=== PATIENT | female | born 1950 | race Caucasian/White ===

== ENCOUNTER 2025-02-20 15:39 | Emergency (ER) | payer MEDICARE, SELFPAY ==
--- NOTE | 2025-02-20 15:51 | ED_ITS ---
HPI - Back Pain/Injury General Chief Complaint: Urogenital-Female Stated Complaint: Low Back Pain Time Seen by Provider: 02/20/25 15:40 Source: patient Mode of arrival: ambulatory Limitations: no limitations History of Present Illness HPI Narrative: Patient is a 74-year-old female who presents with low back pain, burning with urination and vaginal itching. Reports Back pain started 3 days ago let the other symptoms started 5 days ago. Denies any fever, chills, nausea vomiting, diarrhea. Patient is a very poor historian and states she has multiple allergies but isn't able to give names. Patient states there was only 1 antibiotic she can take but also does not remember the name. Patient also states she has something wrong with her kidneys and poor kidney function but is unable to elaborate. Related Data Home Medications ?Medication ?Instructions ?Recorded ?Confirmed ?Last Taken ?Type alprazolam 0.5 mg tablet mg 02/20/25 Unknown History cinacalcet 30 mg tablet mg PO 02/20/25 Unknown History febuxostat 40 mg tablet mg 02/20/25 Unknown History levothyroxine 88 mcg tablet mcg 02/20/25 Unknown History (Synthroid) pregabalin 50 mg capsule mg 02/20/25 Unknown History Allergies Allergy/AdvReac Type Severity Reaction Status Date / Time latex Allergy Other Verified 02/20/25 16:36 Sulfa (Sulfonamide Allergy Other Verified 02/20/25 16:36 Antibiotics) Review of Systems Review of Systems: All systems reviewed & are unremarkable except as noted in HPI and below Constitutional: Constitutional: Denies chills, Denies fever(s), Denies headache(s), Denies malaise and Denies weakness Eyes: Eyes: Denies change in vision, Denies eye discharge and Denies irritation ENT: Denies otalgia, Denies headache(s), Denies nasal congestion, Denies nasal discharge, Denies sinus pain and Denies sore throat Cardiovascular: Cardiovascular: Denies chest pain, Denies edema, Denies palpitations and Denies dyspnea Respiratory: Respiratory: Denies cough and Denies dyspnea Gastrointestinal: Gastrointestinal: Denies abdominal pain, Denies diarrhea, Denies nausea and Denies vomiting Genitourinary: Genitourinary: Denies hematuria, Denies nocturia, Reports dysuria, Denies flank pain and Denies urinary urgency Musculoskeletal: Musculoskeletal: Reports back pain and Denies numbness Integumentary/Breasts: Skin/Breast: Denies pruritus and Denies rash Neurologic: Denies headache(s), Denies numbness and Denies weakness Psychiatric: Psychiatric: Reports no additional psychiatric complaints Endocrine: Endocrine: Denies palpitations PMFSH Comments At time of signature, agree with nursing past medical, surgical, social and family history. There is no relevant family history pertinent to the presenting complaint. Exam Const: General: cooperative, healthy appearing, comfortable, no acute distress and well nourished Nutritional Appearance: well nourished Orientation/consciousness: patient oriented x3 HENMT: Head: normocephalic and atraumatic Ears: external ears normal Face/Nose/Sinus: Normal external nose present, Normal nares present and normal facial exam Face and sinus: normal facial exam Eyes: General: appearance normal, both eyes and all related structures Pupils: Equal, round and reactive pupils present EOM: EOMs intact bilaterally Neck: Neck: normal visual inspection, full ROM and supple Chest: Chest palpation & inspection: normal inspection of the chest Resp: Effort & Inspection: normal respiratory effort and able to speak in complete sentences Cardio: Rate: regular rate Rhythm: regular rhythm GI: Inspection: normal to inspection GI Palp: No abdominal tenderness and Yes Soft to palpation : General: Yes no CVA tenderness Back/Spine/Pelvis: Back: no CVA tenderness Skin: General skin exam: normal color and no rashes or lesions noted Neuro: General: patient oriented x3 and moves all extremities Cranial nerves: Yes Equal, round and reactive pupils present Extrem: General: normal to inspection and full ROM Psych: Appearance: grossly normal and well kempt Course Course Emergency Course: Patient is aware of diagnosis, understands and agrees to treatment plan. Anticipatory guidance given. Patient agrees to follow-up as directed and is aware of reasons to seek care at the emergency department. Portions of this record may have been created with voice recognition software Level of Care: Express Care Visit Vital Signs Vital signs: Vital Signs Temperature 36.4 C L 02/20/25 16:04 Pulse Rate 70 02/20/25 16:04 Respiratory Rate 18 02/20/25 16:04 Blood Pressure 137/110 H 02/20/25 16:04 Pulse Oximetry 97 02/20/25 16:04 Oxygen Delivery Room Air 02/20/25 16:04 Temperature 36.4 C L 02/20/25 16:04 Pulse Rate 70 02/20/25 16:04 Respiratory Rate 18 02/20/25 16:04 Blood Pressure 137/110 H 02/20/25 16:04 Pulse Oximetry 97 02/20/25 16:04 Oxygen Delivery Room Air 02/20/25 16:04 Reviewed MDM - Back Pain/Injury MDM Narrative Medical decision making narrative: Nurse called patient's pharmacy and softer line it to verify medications and allergies since patient was unable to provide information. Patient states she just had blood drawn 5 weeks ago and her kidney function was better. Reports she did just right of the car for extreme amount of time and does have arthritis in her back. Reports she has taken 2 doses of Tylenol for back pain. Reports she thinks she has a yeast infection since she has had them in the past and the itching feels the same. Will treat with Diflucan. Explained to patient she can not take Diflucan the same time as her alprazolam. Patient states she does not take her alprazolam daily and will not take them at the same time. Pt well hydrated appearing, in no respiratory distress, hemodynamically stable. Recommend supportive care. The patient is stable at time of discharge the clinical impression was discussed and the patient was given the opportunity to ask questions, which were addressed as completely as possible given the information available at present. Anticipatory guidance and return to care precautions were discussed and the importance of primary care follow-up was stressed and encouraged. The patient voiced understanding of the plan, indications to return, and the need for follow-up. Exam findings show no acute concerns or changes Patient is appropriate for outpatient treatment and follow-up. Differential Diagnosis Differential diagnosis: Likely lumbar radiculopathy, strain of lumbar region, renal colic, pyelonephritis and other (UTI, yeast infection) Lab Data Attestation: I reviewed the patient's lab results. Labs: Lab Results 02/20/25 Range/Units 16:12 POC Urine Color Dark POC Urine Clarity Clear POC Urine pH 6.0 POC Ur Specif Waldron 1.015 POC Urine Protein Negative (Negative) POC Ur Glucose (UA) Negative (Negative) POC Urine Ketones Negative (Negative) POC Urine Blood Negative (Negative) POC Urine Nitrite Negative (Negative) POC Urine Bilirubin Negative (Negative) POC Urine Urobilinogen 0.2 POC U Leukocyte Esteras Negative (Negative) Discharge Plan Discharge Clinical Impression: Vaginal yeast infection Lumbar strain Qualifiers: Encounter type: initial encounter Qualified Code(s): S39.012A - Strain of muscle, fascia and tendon of lower back, initial encounter Patient Disposition: Home Condition: Stable Instructions: Yeast Infection (ED), Low Back Strain (ED) Additional Instructions: Take steroids per package instructions. For pain, you may take: Tylenol 650- 1000mg by mouth every 4-6 hours. Do not exceed 4000mg in 24 hours. Exercise:Combine aerobic exercise, like walking or swimming, with specific exercises to keep the muscles in your back and abdomen strong and flexible.bed rest is not recommended. Proper Lifting:Be sure to lift heavy items with your legs, not your back. Do not bend over to pick something up. Keep your back straight and bend at your knees. Weight:Maintain a healthy weight. Being overweight puts added stress on your lower back. Avoid Smoking:Both the smoke and the nicotine cause your spine to age faster than normal. Proper Posture:Good posture is important for avoiding future problems. A therapist can teach you how to safely stand, sit, and lift. Use warm moist heat or ice to help with pain. Follow up with Primary provider in 2-3 days, This may become a chronic condition and they will be the one to help manage your pain and order additional testing. Follow-up with your doctor for further care and evaluation or seek ER if you develop problems with bladder/bowel function, weakness or loss of feeling in one or both of your legs. Take 1 pill today and in 3 days take additional pill. Do not use any scented soaps, tampons or pads. Make sure to always urinate after sex. Use non scented, non flavored condoms. Do not sit and bath with scented soaps or oils. Where cotton underwear and change underwear after exercise. Patient Language: Dominican Prescriptions: New fluconazole 150 mg tablet 150 mg PO ONCE Qty: 2 0RF Rx Instructions: as a single dose after antibiotics are complete. If symptoms persist, take second dose 3 days later. methylprednisolone [Medrol (Byron)] 4 mg tablets,dose pack See Rx Instructions .ROUTE .COMPLEX Qty: 21 0RF Rx Instructions: orally per package directions No Action levothyroxine [Synthroid] 88 mcg tablet alprazolam 0.5 mg tablet cinacalcet 30 mg tablet PO pregabalin 50 mg capsule febuxostat 40 mg tablet Follow-up/Referrals: PHYSICIAN,TILT TRAY DRIVER [Primary Care Provider] - Time of Disposition: 16:54
[2025-02-20 16:04] VITALS: BP 137/110; PULSE 70; RESP 18; TEMP 36.4; O2SAT 97
[2025-02-20 16:14] LABS: EDUAAPPEAR Clear; EDUABILI Negative (Negative); EDUABLOOD Negative (Negative); EDUACOLOR1 Dark; EDUAGLUCOSE Negative (Negative); EDUAKETONE Negative (Negative); EDUALEUKO Negative (Negative); EDUANITRATE Negative (Negative); EDUAPROTEIN Negative (Negative); EDUASPGRAVITY 1.015; EDUAUROBILI 0.2
--- OUTSIDE RECORDS SUMMARY | 2025-02-20 16:27 | XMS_ITS | Patient Health Record ---
Author Organization [facility] Address [address] [place] [id number] Care Team Providers Care Rn Lactation Name Role Phone Dr. Naresh Stapleton Primary Care Provider Un available Nesha Padilla Unavailable [phone] Allergies Allergen (clinical drug ingredient) Drug/Non Drug Allergy documented on EMR Reaction Allergy Type Onset Date Status ADHESIVE TAPE (uncoded) hives Allergy Active Substance with sulfonamide structure and antibacterial mechanism of action (substance) SULFA (uncoded) Unknown Allergy Active Latex Latex Unknown Allergy Active Results Component Value Reference Range Notes CALCIUM IONIZED Reviewed date:01/02/2025 08:25:50 AM Interpretation: Performing Lab: Notes/Report: 4SST CALCIUM,IONIZED(ISE) 1.26 1.09-1.30 mmol/L VITAMIN D-25 HYDROXY Reviewed date:01/02/2025 08:25:37 AM Interpretation: Performing Lab: Notes/Report: 4SST VITAMIND-25HYDROXY 17.6 30.0-100.0 ng/mL DEFICIENCY <10 ng/mL INSUFFICIENCY 10-30 ng/mL SUFFICIENCY 30-100 ng/mL TOXICITY >100 ng/mL Method: Quantitative chemiluminescent immunoassay. Source: Serum. PTH INTACT Reviewed date:01/02/2025 08:25:43 AM Interpretation: Performing Lab: Notes/Report: 4SST PTHINTACT,serum 109 12-88 pg/mL NOTE: REFERENCE RANGE STUDY WAS PERFORMED ON AGES 19-67 YEARS OLD. OTHER AGES INTERPRET WITH CAUTION. TSH + FREE T4 Reviewed date:02/02/2025 10:50:34 PM Interpretation: Performing Lab: Notes/Report: 2SST TSH 3RD GENERATION 0.71 0.34-4.41 uIU/mL FREE T4 1.03 0.54-1.24 ng/dL COMPREHENSIVE METABOLIC Reviewed date:02/02/2025 10:52:16 PM Interpretation: Performing Lab: Notes/Report: 2SST SODIUM 140 136-145 mmol/L POTASSIUM 5.2 3.5-5.1 mmol/L CHLORIDE 104 98-107 mmol/L CARBON DIOXIDE 31 19-32 mEq/L GLUCOSE 88 65-99 mg/dL Non-fasting ref erence interval: 65-139 mg/dL BUN 13 7-25 mg/dL CREATININE 1.0 0.5-1.2 mg/dL BUN/CREATININE RATIO 13 8-28 Ratio BILIRUBIN,Total 0.5 0.2-1.2 mg/dL CALCIUM 9.6 8.6-10.5 mg/dL PROTEIN TOTAL 6.4 6.0-8.3 g/dL ALBUMIN 4.4 3.5-5.7 g/dL ALK.PHOSPHATASE 40 20-130 U/L ALT (SGPT) 21 7-52 U/L AST (SGOT) 20 11-39 U/L GLOBULIN 2.0 1.8-4.0 g/dL A/G RATIO 2.2 0.8-2.7 Ratio eGFR 59 >=60 mL/min GFR is estimated using the CKD-EPI Creatinine equation 2020. GFR units are in mL/min/1.73 square meters. COMPREHENSIVE METABOLIC PANE L Reviewed date:12/05/2024 11:45:49 AM Interpretation: Performing Lab: Notes/Report: BASIC METABOLIC PROFILE Reviewed date:01/02/2025 08:25:25 AM Interpretation: Performing Lab: Notes/Report: 4SST GLUCOSE 85 65-99 mg/dL Non-fasting ref erence interval: 65-139 mg/dL BUN 17 7-25 mg/dL CREATININE 1.1 0.5-1.2 mg/dL BUN/CREATININERATIO 15 8-28 Ratio SODIUM 141 136-145 mmol/L POTASSIUM 4.8 3.5-5.1 mmol/L CHLORIDE 105 98-107 mmol/L CARBONDIOXIDE 27 19-32 mEq/L CALCIUM 9.8 8.6-10.5 mg/dL eGFR 52 >=60 mL/min GFR is estimated using the CKD-EPI Creatinine equation 2020. GFR units are in mL/min/1.73 square meters. Note: - Reason For Referral No Information Medications Medication SIG (Take, Route, Frequency, Duration) Notes Start Date End Date Status ALPRAZolam 0.5 MG 1 tab(s) orally 3 ti mes a day Active Febuxostat 40 MG 1 tablet Orally Once a day for 30 day(s) 11/18/2023 Active Pregabalin 50 MG Oral for 30 Days Active Cinacalcet HCl 30 MG 1 tablet after dinn er meal Orally Once a day for 90 days 10/10/2024 Active Synthroid 88 MCG 1 tab(s) orally once a day for 90 days Active predniSONE 10 MG 1 tab(s) orally once a day Not-Taking Social History Tobacco Use: Social History Observation Description Date Details (start date - stop date) Never Smoker NA - NA SMOKING HISTORY: Question Answer Notes Do you smoke or use other tobacco products Never Additional Findings: Tobacco Non-User Current no n-smoker Alcohol Question Answer Notes Did you have drink containing alcohol in past ye ar No Points 0 Interpretation Negative PRAPARE Question Answer Notes Date Completed/Updated: 01/10/2025 What is your current housing situation? I have h ousing Are you worried about losing your housing? No What is the highest level of school that you have finished? More than high school What is your current work situation? Oth erwise unemployed but not seeking work (ex. student, retired, disabled, unpaid primary patient care representative) In the past year, have you o r any family members you live with been unable to get any of the following when it was really needed? Check all that apply I do not have problems meeting my needs Has lack of transportation k ept you from medical appointments, meetings, work or from getting things needed for daily living? No How often do you see or talk to people that you care about and feel close to? (For example: talking to friends on the phone, visiting friends or family, going to protestant or club meetings) More than 5 times a week How stressed are you? Stress is when someone feels tense, nervous, anxious, or cant sleep at night because their mind is troubled Not at all PRAPARE Score: 2 Problems Problem Type SNOMED Code ICD Code Onset Dates Problem Status W/U Status Risk Notes Problem Body mass index (BMI) 36.0-36.9, adult (Z68.36) 2024 Active confirmed Problem Obese (523734559) Obese (E66.9) 2024 Active confirmed Problem 46324243 Primary hyperparathyroidism (E21.0) Active confirmed L Problem Body mass index 35.00 to 39.99 (85920928879137 5) Body mass index (BMI) 37.0-37.9, adult (Z68.37) Active confirmed Problem Body mass index 35.00 to 39.99 (15255709841419 5) Body mass index (BMI) 38.0-38.9, adult (Z68.38) Active confirmed Problem Chronic kidney disease (370096862) Chronic kidney disease (N18.9) Active confirmed Problem 2198782 Goiter (E04.9) Active confirmed no obstructive symptoms Problem 35871369 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) Active confirmed labs fro m 08/14/2021 TSH 0.45 mIU/mL (0.35 - 3.74), Free T4 1.43 ng/dL (0.76-1.46), and Free T3 2.51 pg/mL (2.19-3.98) Problem 32233671 Vitamin D defici ency (E55.9) Active confirmed Problem 798967951 Primary osteoarthritis involving multiple joints (M15.9) Active confirmed Problem 79291264075227 Arthritis, multi ple joint involvement (M12.9) Active confirmed Vital Signs Heart Rate 68 /min 01/10/2025 Respiratory Rate 18 /min 01/10/2025 Blood pressure diastolic 78 mm Hg 01/10/2025 Oximetry 96 % 01/10/2025 Weight-kg 102.51 kg 01/10/2025 Height 64 in 01/10/2025 Blood pressure systolic 128 mm Hg 01/10/2025 Weight 226 lbs 01/10/2025 BMI 38.79 kg/m2 01/10/2025 Encounters Encounter Location Date Provider Diagnosis [facility] [address] [address] 10/10/2024 Nesha Padilla Primary hyperparathyroidism E21.0 ; Kee's thyroiditis E06.3 ; Vitamin D deficiency E55.9 ; Primary osteoarthritis involving multiple joints M15.9 ; Impaired mobility Z74.09 ; Dietary counseling Z71.3 ; Exercise counseling Z71.89 ; Obese E66.9 and Body mass index (BMI) 36.0-36.9, adult Z68.36 NIP EQUIPMENT OPERATOR/LABORER/SUPERVISOR MAP [address] [address] 12/29/2024 Nesha El-Choufi NIP EQUIPMENT OPERATOR/LABORER/SUPERVISOR MAP [address] [address] 01/10/2025 Nesha El-Choufi Primary hyperparathyroidism E21.0 ; Kee's thyroiditis E06.3 ; Vitamin D deficiency E55.9 ; Primary osteoarthritis involving multiple joints M15.9 ; Impaired mobility Z74.09 ; Dietary counseling Z71.3 ; Exercise counseling Z71.89 ; Obese E66.9 and Body mass index (BMI) 38.0-38.9, adult Z68.38 NIP EQUIPMENT OPERATOR/LABORER/SUPERVISOR MAP [address] [address] 01/30/2025 Nesha El-Choufi NIP EQUIPMENT OPERATOR/LABORER/SUPERVISOR MAP [address] [address] 06/23/2024 Nesha El-Choufi Kee's thyroidi tis E06.3 NIP EQUIPMENT OPERATOR/LABORER/SUPERVISOR MAP [address] [address] 11/24/2024 Nesha El-Choufi NIP EQUIPMENT OPERATOR/LABORER/SUPERVISOR MAP [address] [address] 12/28/2024 Nesha El-Choufi Primary hyperparathyroidism E21.0 ; Vitamin D deficiency E55.9 and Chronic kidney disease N18.9 NIP EQUIPMENT OPERATOR/LABORER/SUPERVISOR MAP [address] [address] 02/02/2025 Nesha El-Choufi Assessments Encounter Date Diagnosis (ICD Code) Assessment Notes Treatment Notes Treatment Clinical Notes Section Notes 06/23/2024 Kee's thyroiditis (ICD-10 - E06.3) 10/10/2024 Primary hyperparathyroidism (ICD-10 - E21.0) Stay well hydrated Start Cinacalcet 30 mg nightly . We discussed that she can start with 1/2 pill nightly after dinner for 2 weeks, then progress to 1 pill nightly We explained Cinacalcet in detail, including adverse effects. Patient was comfortable with plans. Labs:CMP in 2months 10/10/2024 Kee's thyroiditis (ICD-10 - E06.3) Continue Synthroid 88 mcg daily Labs: Free T4, TSH before next OV. 12/28/2024 Primary hyperparathyroidism (ICD-10 - E21.0) 01/10/2025 Primary hyperparathyroidism (ICD-10 - E21.0) Stay well hydrated Continue Cinacalcet 30 mg 1/2 pill nightly. Start Vitamin D3 2000 IU daily. Also start a multivitamin (Centrum Silver or One-A-Day for Women) Recheck CMP in 1 month. If Calcium level excessively rises with addition of Vit D, then will need to increase Cinacalcet back to 30 mg daily. 01/10/2025 Kee's thyroiditis (ICD-10 - E06.3) Continue Synthroid 88 mcg daily Labs: Free T4, TSH with next labs. 01/10/2025 Vitamin D deficiency (ICD-10 - E55.9) Restart Vitamin D supplement. Start at 2000 IU daily (will likely need to increase to 5000 Iu) 12/28/2024 Vitamin D deficiency (ICD-10 - E55.9) 10/10/2024 Vitamin D deficiency (ICD-10 - E55.9) Restart Vitamin D supplements after controlling the mild hypercalcemia with Cinacalcet. 12/28/2024 Chronic kidney disea se (ICD-10 - N18.9) 10/10/2024 Primary osteoarthrit is involving multiple joints (ICD-10 - M15.9) 01/10/2025 Primary osteoarthrit is involving multiple joints (ICD-10 - M15.9) 01/10/2025 Impaired mobility (ICD-10 - Z74.09) 10/10/2024 Impaired mobility (ICD-10 - Z74.09) 10/10/2024 Dietary counseling (ICD-10 - Z71.3) 01/10/2025 Dietary counseling (ICD-10 - Z71.3) 01/10/2025 Exercise counseling (ICD-10 - Z71.89) 10/10/2024 Exercise counseling (ICD-10 - Z71.89) 10/10/2024 Obese (ICD-10 - E66.9) 01/10/2025 Obese (ICD-10 - E66.9) 01/10/2025 Body mass index (BMI ) 38.0-38.9, adult (ICD-10 - Z68.38) 10/10/2024 Body mass index (BMI ) 36.0-36.9, adult (ICD-10 - Z68.36) Plan Of Treatment Future Test Test Name Order Date TSH+Free T4 02/07/2025 Comp. Metabolic Panel (14) 02/07/2025 Next Appt Details Provider Name:Neshakira Sethi i, 07/19/2025 01:30:00 PM, [address] [facility], [address], [place], [address], Insurance Providers Payer Name Payer Address Payer Phone Subscriber Number Group Number Insured Name Patient Relationship to Insured Coverage Start Date Coverage End Date [employer] [address] [address] [place] [phone] [id number] Madison Aparicio Self - patient is the insured 2 Medicare [employer] [address] [place] [address] [id number] Madison Aparicio Self - patient is the insured 2 Medical (General) History Medical History History ICD Code Kee Thyroiditis ROSSY Mixed Hyperlipidemia Hyperparathyroidism Bilateral Carpal Tunnel Syndrome Hyponatremia Hypertension CKD Metabolic Acidosis Surgical History Surgery Date(Month/Year) 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
[2025-02-20 17:04] VITALS: BP 155/78
== END 2025-02-20 17:04 | disposition home or self-care (01) ==
PROVIDERS: Emergency Provider Nurse Practitioner Family
DX: B37.31 Acute candidiasis of vulva and vagina (principal); S39.012A Strain of muscle, fascia and tendon of lower back, initial encounter; X58.XXXA Exposure to other specified factors, initial encounter; E03.9 Hypothyroidism, unspecified
CPT/HCPCS: 81003; 99203; G0463